=== PATIENT | female | born 1960 | race Caucasian/White ===

== ENCOUNTER 2017-07-07 12:34 | Emergency (ER) | payer OTHER ==
[~2017-07-07] VITALS: Ht 162.6 cm; Wt 63.5 kg
[2017-07-07 12:59] VITALS: BP 124/80
[2017-07-07] MEDS ORDERED: HYDROmorphone 1 MG/ML AMP IM ONE (13:15)
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
--- NOTE | 2017-07-07 13:30 | NUR ---
PT TO C/T ACCOMPANIED BY PORTFOLIO ARCHITECT
[2017-07-07] MEDS ORDERED: HYDROmorphone PFS 2 MG/ML SYR ONE (13:35)
--- NOTE | 2017-07-07 14:56 | NUR ---
Patient discharged with v/s stable. Written and verbal after care instructions given and explained. Patient alert, oriented and verbalized understanding of instructions. Ambulatory with steady gait. All questions addressed prior to discharge. ID band removed. Patient advised to follow up with PMD. Rx of [place] #5 given. Patient educated on indication of medication including possible reaction and side effects. Opportunity to ask questions provided and answered.
[2017-07-07 14:59] VITALS: BP 127/86
== END 2017-07-07 14:56 | disposition home or self-care (01) ==
LOC: MED 12:34
DX: M51.36 Other intervertebral disc degeneration, lumbar region (principal)
CPT/HCPCS: 72131; 96372; 99284; J1170